=== PATIENT | female | born 1980 | race Caucasian/White ===

== ENCOUNTER 2019-09-25 16:51 | Emergency (ER) | payer MEDICAID, SELFPAY ==
[2019-09-25 17:08] VITALS: BP 122/67; PULSE 82; RESP 16; TEMP 37.3; O2SAT 99
--- NOTE | 2019-09-25 17:42 | ED.URI ---
HPI - URI/Sore Throat General Chief Complaint: Upper Respiratory Infection Stated Complaint: Fever/Sore Throat/Cough/Headache/Fatigue Time Seen by Provider: 09/25/19 17:43 Source: patient and RN notes reviewed Mode of arrival: ambulatory Limitations: no limitations and other (sore throat) History of Present Illness HPI Narrative: 39 year old female who presents to [facility] with complaints of fever, cough, headache, sneezing, and body aches since Sunday. Patient states that she has had fever up to 101.5F and has been taking Tylenol and Ibuprofen for the fevers and her discomfort. Patient states that her cough is nonproductive, denies any shortness of breath or any wheezing, respirations even and non labored with SAO2 99% on room air. MD elicited complaint: fever, cough and other (headache) Onset (ago): day(s) (2) Consistency: progressively worsening Severity: moderate Pain scale (0-10): 5 Description of mucous: clear Able to tolerate fluids by mouth: Yes Exacerbating factors: exertion Relieving factors: NSAID Associated symptoms: fever, chills, myalgias, headache and cough Treatments prior to arrival: acetaminophen and ibuprofen Related Data Home Medications Medication Instructions Recorded Confirmed lamotrigine 200 mg tablet 200 mg PO BID 09/10/19 sumatriptan succinate 100 mg tablet See Rx Instructions PO .COMPLEX 09/10/19 topiramate 25 mg tablet 25 mg PO .COMPLEX 09/10/19 Allergies Allergy/AdvReac Type Severity Reaction Status Date / Time ibuprofen Allergy Mild Verified 11/24/17 15:20 aspirin Allergy Unknown Verified 11/22/18 10:37 caffeine Allergy Unknown Verified 12/23/12 14:04 codeine Allergy Unknown Verified 11/22/18 10:37 NSAIDS (Non-Steroidal Allergy Unknown Verified 11/22/18 10:42 Anti-Inflamma Review of Systems Review of Systems: Narrative: CONSTITUTIONAL:Positive fever, chills, or sweats. EYES: Denies visual changes, redness, or discharge. ENT:clear rhinorrhea, congestion,no sore throat, or otalgia. CARDIOVASCULAR: Denies chest pain, palpitations, or edema. RESPIRATORY: Positive cough denies dyspnea. GASTROINTESTINAL: Denies abdominal pain, nausea, vomiting, or diarrhea. GENITOURINARY: Denies dysuria or hematuria. SKIN: Denies rash or itching. MUSCULOSKELETAL: Denies back pain, joint pain, or myalgia. NEUROLOGIC: positive headache, numbness, or weakness. PSYCHIATRIC: positive anxiety or depression. All systems reviewed & are unremarkable except as noted in HPI and below PMFSH Past Medical History Medical History (Updated 10/02/19 @ 16:25 by Lucy Beckham NP) Bipolar 1 disorder Chronic low back pain Migraines Solitary kidney Surgical History Surgical History (Updated 10/02/19 @ 16:26 by Lucy Beckham NP) H/O spinal fusion H/O: hysterectomy Hx of tonsillectomy Previous section Family History Family History Father Depression Family history of elevated blood lipids Mother Patient's mother is in good health Sibling Patient's sister is in good health Other Hypertension Social History Social History (Updated 10/02/19 @ 16:27 by Lucy Beckham NP) Smoking status: Never smoker Alcohol intake: current Living arrangements: with family Gender identity (if verbalized by the patient): Female Comments At time of signature, agree with nursing past medical, social history. There is no relevant family history pertinent to the presenting complaint Exam Narrative: Exam Narrative: GENERAL: Well-appearing, well-nourished, and in no acute distress. HEAD: Normocephalic, atraumatic. EYES: PERRLA and EOMI. ENT: Nares red, clear rhinorrhea or epistaxis. Mucous membranes moist.TM's normal with good light reflex, throat mild redness with no lesions or exudate, no tonsil enlargement NECK: Supple.no lymphadenopathy CHEST: Clear to auscultation. No respiratory distress.cough SAO2 99% on room air HEART:
== END 2019-09-25 17:48 | disposition home or self-care (01) ==
PROVIDERS: Emergency Provider Registered Nurse; PCP Internal Medicine
DX: J10.1 Influenza due to other identified influenza virus with other respiratory manifestations (principal); R05 Cough
CPT/HCPCS: 87804; 99213; G0463

== ENCOUNTER 2020-04-28 09:12 | Emergency (ER) | payer OTHER, SELFPAY ==
--- NOTE | ~2020-04-28 | CT_ITS ---
EXAMINATION: CT abdomen pelvis w con DATE: 04/28/2020 12:59 INDICATION: Left lower quadrant pain TECHNIQUE: Computed tomography (CT) of the abdomen and pelvis was performed with 100 cc Omnipaque 350 intravenous contrast. The dose-length product was 339.20 mGy-cm. Automated exposure control and iter ative reconstruction technique were employed. COMPARISON: CT dated 07/22/2010 FINDINGS: Lung bases are unremarkable. Heart size normal. No significant pleural or pericardial effus ion. The left kidney not identified. The liver, spleen, adrenal glands, pancreas are unremarkable. Th ere is 3.5 cm right renal cyst.. No significant vascular abnormality. No lymphadenopathy. There are c hanges of spinal fusion at L5-S1. No acute osseous abnormality. Nonobstructive bowel gas pattern. No evidence for diverticulitis. IMPRESSION: 1. No acute abdominal abnormality. Reviewed, dictated and finalized at location A.
--- NOTE | ~2020-04-28 | US_ITS ---
EXAMINATION: US pelvic complete w TV DATE: 04/28/2020 15:21 INDICATION: Left lower quadrant pain, hysterectomy TECHNIQUE: Multiple transabdominal and endovaginal sonographic images of the pelvis were obtained. COMPARISON: None. FINDINGS: The uterus is surgically absent. The right ovary measures 3.3 x 1.9 x 1.9 cm. The left ovar y measures 3.2 x 1.9 x 2.2 cm. There is normal vascular flow in the ovaries. There is no free fluid i n the pelvis. IMPRESSION: 1. No sonographic correlate for the patient's symptoms. Reviewed, dictated and finalized at location A.
[2020-04-28 09:29] VITALS: BP 131/67; PULSE 85; RESP 18; TEMP 36.7; O2SAT 100
[2020-04-28 09:51] LABS: Basophils Absolute Auto 0.1 K/mm3 (0.0-0.1); Basophils Percent Auto 0.7 % (0.2-1.2); Eosinophils Absolute Auto 0.2 K/mm3 (0-0.3); Eosinophils Percent Auto 2.2 % (0-4.4); Hematocrit 39.7 % (37.0-47.0); Hemoglobin 13.2 g/dL (12.0-15.0); Immature Granulocyte Absolute 0.03 K/mm3 (0.00-0.031); Immature Granulocyte Percent A 0.4 % (0-0.5); Lymphocytes Absolute Auto 2.22 K/mm3 (0.9-3.2); Lymphocytes Percent Auto 29.9 % (18.3-44.2); Mean Corpuscular HGB Conc 33.2 g/dl (32-36); Mean Corpuscular Hemoglobin 30.5 pg (26-34); Mean Corpuscular Volume 91.7 fl (80-100); Mean Platelet Volume 10.8 fl (7.4-10.4); Monocytes Absolute Auto 0.4 K/mm3 (0.1-0.6); Monocytes Percent Auto 4.7 % (2.6-8.5); Neutrophils Absolute Auto 4.6 K/mm3 (1.3-6.7); Neutrophils Percent Auto 62.1 % (45.5-73.1); Platelet Count Result 265 k/mm3 (150-375); Red Blood Count 4.33 M/mm3 (4.2-5.4); Red Cell Distribution Width 12.4 % (11.5-14.5); White Blood Count 7.4 K/mm3 (4.5-10.0)
[2020-04-28 10:03] LABS: Alanine Aminotransferase 24 U/L (4-35); Albumin Level 4.4 g/dL (3.5-5.1); Alkaline Phosphatase 65 U/L (38-126); Anion Gap 7 mmol/L (8-16); Aspartate Amino Transferase 20 U/L (14-36); Bilirubin,Total 0.3 mg/dL (0.2-1.3); Blood Urea Nitrogen 20 mg/dL (7-17); Calcium 9.6 mg/dL (8.4-10.2); Carbon Dioxide 24 mmol/L (22-30); Chloride 109 mmol/L (98-107); Estimated CRCL calculation 58 ml/min; Estimated Glomerular Filt Rate 55; Glucose 108 mg/dL (65-105); Lipase 290 U/L (23-300); Potassium 3.9 mmol/L (3.4-5.0); Sodium 140 mmol/L (137-145)
[2020-04-28 10:11] LABS: Add Urine Microscopic? NO; Appearance Urine Clear (Clear); Bilirubin Urine Negative (Negative); Blood Urine Negative (Negative); Color Urine Colorless (Yellow); Glucose Urine UA Negative (Negative); Ketones Urine Negative (Negative); Leukocyte Esterase Ur Negative LEU/UL (Negative); Nitrate Urine Negative (Negative); Protein Urine Negative (Negative); Urobilinogen Urine Negative mg/dL (<2.0)
--- NOTE | 2020-04-28 11:38 | PC.NURSE ---
Patient placed in gown. Socks provided to patient per her request. Patients respirations non-labored. No distress noted.
[2020-04-28] MEDS: SODIUM CHLORIDE 0.9% IV 1,000 ML 999 ML IV CONT (12:24)
[2020-04-28 13:40] VITALS: BP 93/48; PULSE 60; RESP 12; O2SAT 100
--- NOTE | 2020-04-28 13:44 | ED.ABDPAIN ---
HPI - Abdominal Pain General Chief Complaint: Abdominal Pain <SHARON Ulloa Last Filed: 04/28/20 13:51> Stated Complaint: abd pain <SHARON Ulloa Last Filed: 04/28/20 13:51> Time Seen by Provider: 04/28/20 11:38 <SHARON Ulloa Last Filed: 04/28/20 13:51> Source: patient <SHARON Ulloa Last Filed: 04/28/20 13:51> Mode of arrival: ambulatory <SHARON Ulloa Last Filed: 04/28/20 13:51> Limitations: no limitations <SHARON Ulloa Last Filed: 04/28/20 13:51> History of Present Illness HPI narrative: Patient is a 40-year-old female who presents with left lower abdominal pain for the last couple of days as a pressure and pain made better with pressing on the left lower abdomen patient denies vomiting fever chills URI symptoms or any urinary complaints notes history of ovarian cyst in the past. Patient has not been seen for this complaint on arrival is in no distress <SHARON Ulloa Last Filed: 04/28/20 13:51> Related Data Home Medications: Home Medications Medication Instructions Recorded Confirmed sumatriptan succinate 100 mg tablet See Rx Instructions PO .COMPLEX 09/10/19 03/12/20 <SHARON Ulloa Last Filed: 04/28/20 13:51> Allergies/Adverse Reactions: Allergies Allergy/AdvReac Type Severity Reaction Status Date / Time codeine Allergy Unknown Swelling Verified 04/28/20 09:37 ibuprofen AdvReac Mild Swelling Verified 04/28/20 09:37 aspirin AdvReac Unknown Swelling Verified 04/28/20 09:37 NSAIDS (Non-Steroidal AdvReac Unknown Swelling Verified 04/28/20 09:37 Anti-Inflamma <SHARON Ulloa Last Filed: 04/28/20 13:51> Review of Systems Review of Systems: All systems reviewed & are unremarkable except as noted in HPI and below <SHARON Ulloa Last Filed: 04/28/20 13:51> PMFSH Past Medical History Medical History: Medical History Bipolar 1 disorder Chronic low back pain Elevated lipids Migraines Solitary kidney <Samuel Cowan PA-C - Last Filed: 04/28/20 13:51> Surgical History Surgical History: Surgical History H/O spinal fusion H/O: hysterectomy Hx of tonsillectomy Previous section <Samuel Cowan PA-C - Last Filed: 04/28/20 13:51> Social History Social History: Social History Smoking status: Never smoker Alcohol intake: current Gender identity (if verbalized by the patient): Female <Samuel Cowan PA-C - Last Filed: 04/28/20 13:51> Exam Narrative: Exam Narrative: GENERAL: Well-appearing, well-nourished, and in no acute distress. HEAD: Normocephalic, atraumatic. EYES: PERRLA and EOMI. ENT: Nares clear, no rhinorrhea or epistaxis. Mucous membranes moist. CHEST: Clear to auscultation. No respiratory distress. No wheezes rales or rhonchi HEART: Regular rate and rhythm. No murmur heard. Normal peripheral pulses. ABDOMEN: Soft, left lower abdominal tenderness to palpation, nondistended. No rebound or guarding EXTREMITIES: Normal range of motion. No edema. SKIN: Warm, dry, no rash. NEURO: No focal deficits. Alert and oriented x3. PSYCH: Normal mood and affect. <Samuel Cowan PA-C - Last Filed: 04/28/20 13:51> Course Course Emergency Course: Patient was given medications in the emergency department no high risk changes in the blood work or imaging advised to follow with primary care and gynecology for further evaluation and is felt appropriate for outpatient reevaluation provided with reasons to return. <Samuel Cowan PA-C - Last Filed: 04/28/20 13:51> Vital Signs Vital signs: Vital Signs Temperature 36.7 C 04/28/20 09:29 Pulse Rate 85 04/28/20 09:29 Respiratory Rate 18 04/28/20 09:29 Blood Pressure
--- NOTE | 2020-04-28 15:06 | PC.NURSE ---
Patient to ultrasound via wheelchair.
[2020-04-28 15:49] VITALS: BP 104/58; PULSE 69; RESP 12; O2SAT 99
== END 2020-04-28 15:50 | disposition home or self-care (01) ==
PROVIDERS: Emergency Provider Emergency Medicine; PCP Internal Medicine
DX: R10.32 Left lower quadrant pain (principal); F31.9 Bipolar disorder, unspecified
CPT/HCPCS: 36415; 74177; 76830; 76856; 80053; 81003; 83690; 85025; 96361; 96365; 99284; J0131; J7030; Q9967

== ENCOUNTER 2020-04-29 16:09 | Outpatient (CLI) | payer OTHER, SELFPAY ==
--- NOTE | ~2020-04-29 | US_ITS ---
EXAMINATION: US abdomen complete DATE: 04/29/2020 17:36 INDICATION: Abdominal distention TECHNIQUE: Multiple grayscale and Doppler ultrasound images of the abdomen were obtained. COMPARISON: CT and ultrasound examinations from yesterday FINDINGS: The head, body, and tail of the pancreas are normal. The liver is normal with normal echoge nicity and echotexture. No surface nodularity. Normal hepatopetal flow in the main portal vein. The g allbladder is normal with no abnormal wall thickening, pericholecystic fluid or stones. The normal co mmon bile duct measures 4 mm. There was no sonographic Del Toro sign. The visualized portions of the ao rta and inferior vena cava are normal. The right kidney measures 12.5 x 6.1 x 6.2 cm and contains a 3.2 cm cyst. The left kidney is congenit ally absent. The right kidney demonstrates normal parenchymal echogenicity. A hypoechoic area of the left lower quadrant measured by the core dropper is without suspicious correlate on CT performed yeste rday and likely reflects a loop of bowel. There is no hydronephrosis. The spleen is normal in appeara nce and measures 11.1 cm. IMPRESSION: 1. No sonographic correlate for the patient's symptoms. Reviewed, dictated and finalized at location A.
== END 2020-04-29 16:10 | disposition home or self-care (01) ==
PROVIDERS: PCP Internal Medicine; Visit Provider Internal Medicine
DX: R14.0 Abdominal distension (gaseous) (principal)
CPT/HCPCS: 76700

== ENCOUNTER 2020-05-15 11:02 | Outpatient (CLI) | payer OTHER, SELFPAY ==
[2020-05-15 18:59] LABS: SARS-CoV-2 RNA PCR Negative
== END 2020-05-15 11:03 ==
LOC: ANHCOVIDDT 07-28 11:02
PROVIDERS: PCP Internal Medicine; Visit Provider Internal Medicine Gastroenterology
DX: Z01.812 Encounter for preprocedural laboratory examination (principal); Z20.828 Contact with and (suspected) exposure to other viral communicable diseases
CPT/HCPCS: 87635; C9803; U0003

== ENCOUNTER 2020-05-18 01:53 | Day surgery (SDC) | payer OTHER, SELFPAY ==
[2020-05-12 11:45] VITALS: BMI 26.8
[2020-05-18] MEDS: LACTATED RINGERS 1,000 ML 150 ML IV CONT (06:40)
[2020-05-18 06:42] VITALS: BMI 26.9
[2020-05-18 06:44] VITALS: BP 105/62; PULSE 66; RESP 18; TEMP 36.3; O2SAT 100
--- NOTE | 2020-05-18 07:04 | WPDANESEPPF ---
Anes - Initial Pre Proc Eval Procedure: Operation Date: 05/18/20 07:30 Proposed Procedures p Colonoscopy - Vel Blackburn MD Date/Time: 05/18/20 07:04 Surgeon: Vel Blackburn MD Pre Op Diagnosis: LLQ pain Patient Data Age: 40 Gender: F Height: 5 ft 4 in Weight: 71 kg Last Vital Signs Temp 97.4 F L 05/18/20 06:44 Pulse 66 05/18/20 06:44 Resp 18 05/18/20 06:44 BP 105/62 05/18/20 06:44 Pulse Ox 100 05/18/20 06:44 Allergies Allergy/AdvReac Type Severity Reaction Status Date / Time codeine Allergy Unknown Swelling Verified 05/18/20 06:23 ibuprofen AdvReac Mild Swelling Verified 05/18/20 06:23 aspirin AdvReac Unknown Swelling Verified 05/18/20 06:23 NSAIDS (Non-Steroidal AdvReac Unknown Swelling Verified 05/18/20 06:23 Anti-Inflamma Home Medications Medication Instructions Recorded Confirmed Type sumatriptan succinate 100 mg tablet See Rx Instructions PO .COMPLEX 09/10/19 05/18/20 History topiramate 25 mg tablet 25 mg PO .COMPLEX #270 tablet 01/16/20 05/18/20 Rx lamotrigine 200 mg tablet 200 mg PO BID #180 tablet 02/13/20 05/18/20 Rx temazepam 30 mg capsule 30 mg PO ONCE #30 cap 02/27/20 05/18/20 Rx tramadol 50 mg tablet 100 mg PO Q8H PRN #180 tablet 05/11/20 05/18/20 Rx methocarbamol [Robaxin-750] 750 mg PO TID PRN 05/12/20 05/18/20 History Patient hx anesthesia problems: none Family hx anesthesia problems: none PMFSH Past Medical History Medical History (Updated 05/10/20 @ 11:24 by Vel Blackburn MD) Bipolar 1 disorder Chronic low back pain Elevated lipids LLQ pain Migraines Solitary kidney Surgical History Surgical History H/O spinal fusion H/O: hysterectomy Hx of tonsillectomy Previous section Family History Family History Father Depression Family history of elevated blood lipids Mother Patient's mother is in good health Sibling Patient's sister is in good health Other Hypertension Social History Social History Smoking status: Never smoker Alcohol intake: current Drinks per week: 0 Alcohol use details: MAY HAVE 1 OR 2 PER MONTH Substance use: never Substance use type: does not use Living arrangements: with family Gender identity (if verbalized by the patient): Female Spiritual care concerns: No Anes - Eval Final PreProcedure Day of Procedure 05/18/20 07:04 Patient weight: normal Heart: regular rate and rhythm Lungs: clear to auscultation Airway: Mallampati scale class II Neurological: alert and oriented Last oral intake: >/= 8 hours ASA classification: II Emergent: no Anesthetic plan: proceed Anesthesia type and monitoring: general GIVS and standard monitoring Informed Consent: The patient's anesthetic plan and its attendant risks and benefits were discussed with the patient/family/POA. Questions were solicited and answers provided to the satisfaction of the patient/family/POA.
--- NOTE | 2020-05-18 07:32 | WPDHPUPDATE1 ---
History and Physical Update Update Date/Time: 05/18/20 07:32 History and Physical has been reviewed, including an updated exam of the patient. There are NO changes in the patient's condition. Risks, benefits, and alternatives have been discussed and questions answered. Patient agrees to proceed with procedure.
[2020-05-18 07:55] VITALS: BP 100/59; PULSE 68; RESP 18; O2SAT 100
[2020-05-18 08:05] VITALS: BP 98/55; PULSE 62; RESP 14; O2SAT 100
[2020-05-18 08:15] VITALS: BP 106/72; PULSE 60; RESP 14; O2SAT 100
[2020-05-18 08:25] VITALS: BP 102/65; PULSE 64; RESP 14; O2SAT 100
[2020-05-18] MEDS: ACETAMINOPHEN 325 MG TABLET 650 MG PO (08:26)
== END 2020-05-18 08:48 | disposition home or self-care (01) ==
PROVIDERS: PCP Internal Medicine; Visit Provider Internal Medicine Gastroenterology
PROC: 0DJD8ZZ Inspection of Lower Intestinal Tract, Via Natural or Artificial Opening Endoscopic (ICD-10-PCS; CPT 45378; principal; 2020-05-18 07:30)
DX: R10.32 Left lower quadrant pain (principal); F31.9 Bipolar disorder, unspecified; Q60.0 Renal agenesis, unilateral; Z98.1 Arthrodesis status
CPT/HCPCS: 45378; A9270; J2704; J7120

== ENCOUNTER 2020-09-01 14:04 | Outpatient (CLI) | payer OTHER, SELFPAY ==
[2020-09-01 14:56] LABS: Basophils Percent Auto 0.5 % (0.2-1.2); Eosinophils Absolute Auto 0.1 K/mm3 (0-0.3); Eosinophils Percent Auto 1.9 % (0-4.4); Hemoglobin 13.1 g/dL (12.0-15.0); Immature Granulocyte Absolute 0.01 K/mm3 (0.00-0.031); Immature Granulocyte Percent A 0.2 % (0-0.5); Lymphocytes Absolute Auto 1.67 K/mm3 (0.9-3.2); Mean Corpuscular HGB Conc 33.6 g/dl (32-36); Mean Corpuscular Hemoglobin 30.6 pg (26-34); Mean Corpuscular Volume 91.1 fl (80-100); Mean Platelet Volume 10.5 fl (7.4-10.4); Monocytes Absolute Auto 0.3 K/mm3 (0.1-0.6); Monocytes Percent Auto 4.5 % (2.6-8.5); Neutrophils Absolute Auto 3.7 K/mm3 (1.3-6.7); Neutrophils Percent Auto 63.9 % (45.5-73.1); Platelet Count Result 249 k/mm3 (150-375); Red Blood Count 4.28 M/mm3 (4.2-5.4); Red Cell Distribution Width 12.7 % (11.5-14.5); White Blood Count 5.8 K/mm3 (4.5-10.0)
[2020-09-01 15:09] LABS: Rheumatoid Factor < 8.6 IU/ML (<12)
[2020-09-01 15:10] LABS: CRP < 0.5 mg/dL (<1.0); Uric Acid 3.3 mg/dL (2.5-7.5)
[2020-09-01 15:35] LABS: Erythrocyte Sedimentation Rate 19 mm/hr (0-20)
== END 2020-09-01 14:05 | disposition home or self-care (01) ==
LOC: ANHLAB 14:06
PROVIDERS: Family Provider Internal Medicine; PCP Internal Medicine; Visit Provider Orthopaedic Surgery
DX: M17.0 Bilateral primary osteoarthritis of knee (principal)
CPT/HCPCS: 36415; 84550; 85025; 85652; 86038; 86140; 86430

== ENCOUNTER 2020-10-02 09:43 | Outpatient (CLI) | payer OTHER, SELFPAY ==
--- NOTE | ~2020-10-02 | MR_ITS ---
EXAMINATION: MR knee LT wo con DATE: 10/02/2020 10:28 INDICATION: Left knee pain. TECHNIQUE: Magnetic resonance imaging (MRI) of the left knee was performed without intravenous contra st. Sequences included axial PD-weighted FS FSE, coronal PD-weighted FSE and PD-weighted FS FSE, sagi ttal PD-weighted FSE, and sagittal T2-weighted FS FSE. COMPARISON: Left knee radiographs 09/01/2020 FINDINGS: Medial compartment: Medial meniscus is normal. There is cartilage surface regularity of tibial condyle. There is deep car tilage fissuring of femoral condyle involving the central articular surface. Lateral compartment: Lateral meniscus is normal. There is cartilage surface irregularity of tibial condyle and femoral con dyle. Patellofemoral compartment: There is shallow partial-thickness cartilage loss involving patellar medial and lateral facets and me rush ridge. There is shallow partial-thickness cartilage loss of lateral trochlea. Ligaments and tendons: The anterior and posterior cruciate ligaments are normal. Medial collateral ligament is normal. There are changes of prior sprain of fibular collateral ligament characterized thickening and increased si gnal intensity. There is mild patellar tendinopathy. Fluid: There is a small knee joint effusion. There is mild prepatellar bursitis. IMPRESSION: 1. Mild tricompartmental chondrosis. 2. Small knee joint effusion. Reviewed, dictated and finalized at location A. [employer] DATA
== END 2020-10-02 09:44 | disposition home or self-care (01) ==
PROVIDERS: PCP Internal Medicine; Visit Provider Orthopaedic Surgery
DX: M25.462 Effusion, left knee (principal)
CPT/HCPCS: 73721

== ENCOUNTER 2021-04-05 09:25 | Outpatient (CLI) | payer OTHER, SELFPAY ==
[2021-04-05 10:19] LABS: Alanine Aminotransferase 17 U/L (4-35); Albumin Level 4.1 g/dL (3.5-5.1); Alkaline Phosphatase 49 U/L (38-126); Anion Gap 6 mmol/L (8-16); Aspartate Amino Transferase 21 U/L (14-36); Bilirubin,Total 0.4 mg/dL (0.2-1.3); Blood Urea Nitrogen 14 mg/dL (7-17); Carbon Dioxide 25 mmol/L (22-30); Chloride 109 mmol/L (98-107); Cholesterol 159 mg/dL (0-200); Estimated Glomerular Filt Rate > 60; Glucose 93 mg/dL (65-110); HDL Direct 68 mg/dL; Potassium 3.7 mmol/L (3.4-5.0); Sodium 140 mmol/L (137-145); Triglycerides 89 mg/dL (<150)
[2021-04-05 10:31] LABS: LDL Cholesterol Direct 62 mg/dL
[2021-04-05 11:22] LABS: Vitamin D 25 Hydroxy 47.8 ng/mL
== END 2021-04-05 09:26 | disposition home or self-care (01) ==
LOC: ANHLAB 09:28
PROVIDERS: PCP Internal Medicine; Visit Provider Nurse Practitioner
DX: Z13.21 Encounter for screening for nutritional disorder (principal); G47.09 Other insomnia; E78.5 Hyperlipidemia, unspecified; Z13.6 Encounter for screening for cardiovascular disorders
CPT/HCPCS: 36415; 80053; 80061; 82306; 84443

== ENCOUNTER 2021-06-06 00:47 | Day surgery (SDC) | payer OTHER, SELFPAY ==
[2021-05-23 11:37] VITALS: BMI 25.3
[2021-06-06 11:44] VITALS: BP 104/53; PULSE 71; RESP 16; TEMP 37.3; O2SAT 100
[2021-06-06] MEDS: LACTATED RINGERS 1,000 ML 150 ML IV CONT (11:47)
--- NOTE | 2021-06-06 11:54 | WPDANESEPPF ---
Anes - Initial Pre Proc Eval Procedure: Operation Date: 06/06/21 13:00 Proposed Procedures p Esophagogastroduodenoscopy - Vel Blcakburn MD Date/Time: 06/06/21 11:54 Surgeon: Vel Blackburn MD Pre Op Diagnosis: epigastric pain Patient Data Age: 41 Gender: F Height: 1.64 m Weight: 69.2 kg Last Vital Signs Temp 37.3 C 06/06/21 11:44 Pulse 71 06/06/21 11:44 Resp 16 06/06/21 11:44 BP 104/53 L 06/06/21 11:44 Pulse Ox 100 06/06/21 11:44 Allergies Allergy/AdvReac Type Severity Reaction Status Date / Time codeine Allergy Unknown Swelling Verified 06/06/21 11:43 ibuprofen AdvReac Mild Swelling Verified 06/06/21 11:43 aspirin AdvReac Unknown Swelling Verified 06/06/21 11:43 NSAIDS (Non-Steroidal AdvReac Unknown Swelling Verified 06/06/21 11:43 Anti-Inflamma Home Medications Medication Instructions Recorded Confirmed Type lamotrigine 200 mg tablet See Rx Instructions .ROUTE 01/10/21 06/06/21 Rx .COMPLEX #180 tablet methocarbamol 750 mg tablet 750 mg PO TID PRN #30 tablet 03/23/21 06/06/21 Rx tramadol 50 mg tablet 100 mg PO Q8H PRN #180 tablet 04/22/21 06/06/21 Rx bupropion HCl 300 mg 24 hr tablet, 300 mg PO QAM #30 tablet 05/10/21 06/06/21 Rx extended release flurazepam 30 mg capsule 30 mg PO QHS PRN #30 cap 05/12/21 06/06/21 Rx Patient hx anesthesia problems: post op nausea/vomiting and other (slow to awaken) Family hx anesthesia problems: none Results Review: All pre-operative results and documents have been reviewed as part of the pre-operative evaluation. [facility] Past Medical History Medical History Bipolar 1 disorder Chronic low back pain Elevated lipids LLQ pain Migraines Solitary kidney Surgical History Surgical History H/O spinal fusion H/O: hysterectomy Hx of tonsillectomy Previous section Family History Family History Father Depression Family history of elevated blood lipids Mother Patient's mother is in good health Sibling Patient's sister is in good health Grandparent Schizophrenia Glaucoma Other Hypertension Social History Social History Smoking status: Never smoker Second hand tobacco smoke exposure: No Alcohol intake: current Drinks per week: 3 Alcohol use details: Social Substance use: never Substance use type: does not use Living arrangements: with family 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 Informed Consent: The patient's anesthetic plan and its attendant risks and benefits were discussed with the patient/family/POA. Questions were solicited and answers provided to the satisfaction of the patient/family/POA.
--- NOTE | 2021-06-06 12:21 | PM.HPGS ---
History of Present Illness History of Present Illness Consent: Risks, benefits, and alternatives have been discussed and questions answered. Patient agrees to proceed with procedure. Chief complaint: epigastric pain Narrative: Caitlyn Ward is a 41 year old female with intermittent ruq pain, took omeprazole without any difference. Review of Systems Constitutional: Constitutional: Denies headache(s) and Denies weakness Eyes: Eyes: Denies blurry vision ENT: Reports Normal hearing present, Denies headache(s) and Denies neck pain Cardiovascular: Cardiovascular: Denies chest pain and Denies dyspnea Respiratory: Respiratory: Denies dyspnea Gastrointestinal: Gastrointestinal: Reports no additional gastrointestinal complaints Genitourinary: Genitourinary: Denies dysuria Musculoskeletal: Musculoskeletal: Denies neck pain Integumentary/Breasts: Skin/Breast: Denies dry skin Neurologic: Reports Normal hearing present, Denies headache(s) and Denies weakness Psychiatric: Psychiatric: Denies anxiety Endocrine: Endocrine: Denies change in body appearance Hematologic/Lymphatic: Hematologic/Lymphatic: Denies easy bleeding Allergic/Immunologic: Allergic/Immunologic: Denies urticaria PMFSH Past Medical History Medical History Bipolar 1 disorder Chronic low back pain Elevated lipids LLQ pain Migraines Solitary kidney Surgical History Surgical History H/O spinal fusion H/O: hysterectomy Hx of tonsillectomy Previous section Family History Family History Father Depression Family history of elevated blood lipids Mother Patient's mother is in good health Sibling Patient's sister is in good health Grandparent Schizophrenia Glaucoma Other Hypertension Social History Social History Smoking status: Never smoker Second hand tobacco smoke exposure: No Alcohol intake: current Drinks per week: 3 Alcohol use details: Social Substance use: never Substance use type: does not use Living arrangements: with family 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 Gender identity (if verbalized by the patient): Female Spiritual care concerns: No Meds Home Medications and Allergies Home Medications Medication Instructions Recorded Confirmed Type lamotrigine 200 mg tablet See Rx Instructions .ROUTE 01/10/21 06/06/21 Rx .COMPLEX #180 tablet methocarbamol 750 mg tablet 750 mg PO TID PRN #30 tablet 03/23/21 06/06/21 Rx tramadol 50 mg tablet 100 mg PO Q8H PRN #180 tablet 04/22/21 06/06/21 Rx bupropion HCl 300 mg 24 hr tablet, 300 mg PO QAM #30 tablet 05/10/21 06/06/21 Rx extended release flurazepam 30 mg capsule 30 mg PO QHS PRN #30 cap 05/12/21 06/06/21 Rx Allergies Allergy/AdvReac Type Severity Reaction Status Date / Time codeine Allergy Unknown Swelling Verified 06/06/21 11:43 ibuprofen AdvReac Mild Swelling Verified 06/06/21 11:43 aspirin AdvReac Unknown Swelling Verified 06/06/21 11:43 NSAIDS (Non-Steroidal AdvReac Unknown Swelling Verified 06/06/21 11:43 Anti-Inflamma Vital Signs Vital Signs - 24 hr 06/06/21 11:44 Temperature 99.2 F Pulse Rate 71 Respiratory Rate 16 Blood Pressure 104/53 L Pulse Oximetry 100 Exam Const: General: comfortable and no acute distress HENMT: General nose exam: Normal nares present Eyes: General: appearance normal, both eyes and all related structures Neck: Neck: no JVD Resp: Auscultation: clear to auscultation bilaterally Cardio: Rate: regular rate Rhythm: regular rhythm GI: Inspection: non-distended GI Palp: Yes Soft to palpation Skin: General skin exam: normal color Neuro: General: gait normal Speech: normal speech Extrem: General: normal to inspecti
[2021-06-06] MEDS: BENZOCAINE (*SP) 60 ML SPRAY CAN (HURRICAINE) 1 SPRAY MUCOUS MEM (12:25)
[2021-06-06 12:34] VITALS: BP 104/52; PULSE 78; RESP 14; O2SAT 99
[2021-06-06 12:44] VITALS: BP 95/58; PULSE 61; RESP 15; O2SAT 100
[2021-06-06 12:54] VITALS: BP 99/64; PULSE 67; RESP 21; O2SAT 100
== END 2021-06-06 13:02 | disposition home or self-care (01) ==
PROVIDERS: PCP Internal Medicine; Visit Provider Internal Medicine Gastroenterology
PROC: 0DJ08ZZ Inspection of Upper Intestinal Tract, Via Natural or Artificial Opening Endoscopic (ICD-10-PCS; CPT 43235; principal; 2021-06-06 13:00)
DX: R10.11 Right upper quadrant pain (principal); F31.9 Bipolar disorder, unspecified; Z98.1 Arthrodesis status
CPT/HCPCS: 43239; 88305; J2704; J7120

== ENCOUNTER 2021-06-22 10:32 | Outpatient (CLI) | payer OTHER, SELFPAY ==
--- NOTE | ~2021-06-22 | US_ITS ---
EXAMINATION: US abdomen complete EXAM DATE: 06/22/2021 11:07 INDICATION: R10.9 - Unspecified abdominal pain. TECHNIQUE: Multiple grayscale and Doppler images of the complete abdomen were obtained (by a technolo gist who performed the scan) and subsequently reviewed. Comparison is made to prior examination from 04/29/2020. FINDINGS: The abdominal aorta is normal in caliber. Visualized portion IVC is patent. The pancreatic head a nd body are normal in appearance. The pancreatic tail is not visualized. The liver has normal echogenicity and contour. There are no focal liver lesions identified. There is no evidence of intrahepatic biliary duct dilation. Portal venous flow was seen in the hepatopedal , normal direction and has normal Doppler waveform. Common bile duct measures 4 mm, which is normal. The gallbladder wall is normal in thickness, with ex pected amount of distention. No sonographic evidence of pericholecystic fluid. There is no cholelit hiases. Technologist performing exam reports patient did not demonstrate sonographic Del Toro's sign. Please note that this sign is less reliable in patients who have received pain medication. Right kidney: There is normal contour and echogenicity. It measures 11.7 x 5.8 x 6.3 centimeters. T here is a cyst measuring 3.4 cm. There is no hydronephrosis. Left kidney: Not identified. The spleen measures 8.5 centimeters and is morphologically normal. IMPRESSION: Absent left kidney. No acute findings. Reviewed, dictated and finalized at location B. [employer]INTER
== END 2021-06-22 10:33 | disposition home or self-care (01) ==
LOC: ANHIMG 10:36
PROVIDERS: PCP Internal Medicine; Visit Provider Nurse Practitioner
DX: R10.9 Unspecified abdominal pain (principal); R19.5 Other fecal abnormalities; Z90.5 Acquired absence of kidney
CPT/HCPCS: 76700

== ENCOUNTER 2022-06-27 10:49 | Outpatient (CLI) | payer OTHER, SELFPAY ==
[2022-06-27 11:19] LABS: Alanine Aminotransferase 25 U/L (6-35); Alkaline Phosphatase 44 U/L (38-126); Anion Gap 8 mmol/L (8-16); Aspartate Amino Transferase 28 U/L (14-36); Bilirubin,Total 0.2 mg/dL (0.2-1.3); Blood Urea Nitrogen 14 mg/dL (7-17); Calcium 8.9 mg/dL (8.4-10.2); Carbon Dioxide 25 mmol/L (22-30); Chloride 106 mmol/L (98-107); Cholesterol 204 mg/dL (0-200); Estimated Glomerular Filt Rate > 60; Glucose 96 mg/dL (65-110); HDL Direct 54 mg/dL; Potassium 4.1 mmol/L (3.4-5.0); Sodium 139 mmol/L (137-145); Triglycerides 201 mg/dL (<150)
[2022-06-27 11:31] LABS: LDL Cholesterol Direct 84 mg/dL
[2022-06-27 11:58] LABS: Vitamin D 25 Hydroxy 25.7 ng/mL
== END 2022-06-27 10:50 | disposition home or self-care (01) ==
LOC: ANHLAB 10:51
PROVIDERS: PCP Internal Medicine; Visit Provider Internal Medicine
DX: Z13.6 Encounter for screening for cardiovascular disorders (principal); E78.5 Hyperlipidemia, unspecified; G47.09 Other insomnia; Z13.21 Encounter for screening for nutritional disorder
CPT/HCPCS: 36415; 80053; 80061; 82306; 84443

== ENCOUNTER 2022-09-25 08:39 | Outpatient (CLI) | payer OTHER, SELFPAY ==
[2022-09-27 10:03] LABS: PCP NEGATIVE ng/mL (<25)
[2022-09-29 08:19] LABS: Amphetamines Negative; Barbiturates Negative; Benzodiazepines Negative; Cocaine Metabolites Negative; Marijuana Metabolites Negative
== END 2022-09-25 08:40 | disposition home or self-care (01) ==
PROVIDERS: PCP Internal Medicine; Visit Provider Internal Medicine
DX: Z51.81 Encounter for therapeutic drug level monitoring (principal); Z79.899 Other long term (current) drug therapy
CPT/HCPCS: 80307

== ENCOUNTER 2023-03-20 09:56 | Outpatient (CLI) | payer OTHER, SELFPAY ==
[2023-03-20 10:36] LABS: Basophils Absolute Auto 0.1 K/mm3 (0.0-0.1); Basophils Percent Auto 0.9 % (0.2-1.2); Eosinophils Absolute Auto 0.1 K/mm3 (0-0.3); Eosinophils Percent Auto 2.1 % (0-4.4); Hematocrit 42.1 % (37.0-47.0); Hemoglobin 13.6 g/dL (12.0-15.0); Immature Granulocyte Absolute 0.03 K/mm3 (0.00-0.031); Immature Granulocyte Percent A 0.4 % (0-0.5); Immature Reticulocyte Fraction 5.4 % (3.0-15.9); Lymphocytes Absolute Auto 2.46 K/mm3 (0.9-3.2); Lymphocytes Percent Auto 36.1 % (18.3-44.2); Mean Corpuscular HGB Conc 32.3 g/dl (32-36); Mean Corpuscular Hemoglobin 30.1 pg (26-34); Mean Corpuscular Volume 93.1 fl (80-100); Mean Platelet Volume 10.7 fl (7.4-10.4); Monocytes Absolute Auto 0.4 K/mm3 (0.1-0.6); Monocytes Percent Auto 5.7 % (2.6-8.5); Neutrophils Absolute Auto 3.7 K/mm3 (1.3-6.7); Neutrophils Percent Auto 54.8 % (45.5-73.1); Platelet Count Result 320 k/mm3 (150-375); Red Blood Count 4.52 M/mm3 (4.2-5.4); Red Cell Distribution Width 12.8 % (11.5-14.5); Reticulocyte Hemoglobin Conten 33.6 pg (28.2-35.7); Reticulocyte Percent 2.03 % (0.7-4.3); Reticulocytes Absolute 0.09 M/mm3 (0.02-0.1); White Blood Count 6.8 K/mm3 (4.5-10.0)
[2023-03-20 10:47] LABS: Alanine Aminotransferase 16 U/L (6-35); Albumin Level 4.7 g/dL (3.5-5.1); Alkaline Phosphatase 61 U/L (38-126); Anion Gap 8 mmol/L (8-16); Aspartate Amino Transferase 21 U/L (14-36); Bilirubin,Total 0.2 mg/dL (0.2-1.3); Blood Urea Nitrogen 20 mg/dL (7-17); Calcium 9.8 mg/dL (8.4-10.2); Carbon Dioxide 25 mmol/L (22-30); Chloride 105 mmol/L (98-107); Cholesterol 238 mg/dL (0-200); Estimated Glomerular Filt Rate > 60; Glucose 102 mg/dL (65-110); HDL Direct 86 mg/dL; Potassium 4.5 mmol/L (3.4-5.0); Sodium 138 mmol/L (137-145); Triglycerides 156 mg/dL (<150)
[2023-03-20 10:57] LABS: Iron 91 ug/dL (37-170)
[2023-03-20 10:58] LABS: LDL Cholesterol Direct 111 mg/dL
[2023-03-20 11:06] LABS: Percent Iron Saturation 24 % (20-50)
[2023-03-20 11:20] LABS: Free T4 Free Thyroxine 1.07 ng/mL (0.78-2.19)
[2023-03-20 13:21] LABS: Vitamin D 25 Hydroxy 39.5 ng/mL
[2023-03-24 06:09] LABS: Red Blood Cell Folate 430 ng/mL RBC (>280)
== END 2023-03-20 09:57 | disposition home or self-care (01) ==
LOC: ANHLAB 09:57
PROVIDERS: PCP Family Medicine; Visit Provider Nurse Practitioner Family
DX: E78.5 Hyperlipidemia, unspecified (principal); G47.00 Insomnia, unspecified; G89.29 Other chronic pain; M51.36 Other intervertebral disc degeneration, lumbar region; Z13.21 Encounter for screening for nutritional disorder; E55.9 Vitamin D deficiency, unspecified; D64.9 Anemia, unspecified; R53.83 Other fatigue; M54.50 Low back pain, unspecified
CPT/HCPCS: 36415; 80053; 80061; 82306; 82607; 82728; 82747; 83540; 83550; 84439; 84443; 85025; 85046

== ENCOUNTER 2023-06-15 09:45 | Emergency (ER) | payer OTHER, SELFPAY ==
--- NOTE | 2023-06-15 09:46 | ED.URI ---
HPI - URI/Sore Throat General Chief Complaint: Upper Respiratory Infection Stated Complaint: Sore Throat Time Seen by Provider: 06/15/23 09:45 Source: patient Mode of arrival: ambulatory Limitations: no limitations History of Present Illness HPI Narrative: Caitlyn is a 43-year-old female patient presenting to the clinic today with complaints feeling feverish, cough, body aches, chills, sore throat, and ear pain times 3 days. No known exposure to anyone with COVID, flu, or strep. Reports she has felt feverish but has not been able check her temperature. She denies any shortness of breath or chest pain. MD elicited complaint: sore throat and nasal congestion Related Data Home Medications Medication Instructions Recorded Confirmed estradiol 0.1 mg/24 hr semiweekly 1 patch transdermal 2XW 02/20/23 06/15/23 transdermal patch Allergies Allergy/AdvReac Type Severity Reaction Status Date / Time ibuprofen AdvReac Mild Swelling Verified 06/15/23 09:46 aspirin AdvReac Unknown Swelling Verified 06/15/23 09:46 NSAIDS (Non-Steroidal AdvReac Unknown Swelling Verified 06/15/23 09:46 Anti-Inflamma Review of Systems Review of Systems: Pertinent positives per HPI. Patient denies any rash, headache, visual changes, dizziness,shortness of breath, chest pain, palpitations, nausea, vomiting, diarrhea, constipation, abdominal pain, or any urinary issues. [facility] Past Medical History Medical History Bipolar 1 disorder Chronic low back pain COVID-19 Elevated lipids LLQ pain Migraines Solitary kidney Surgical History Surgical History H/O spinal fusion (02/03/15) spinal fusion L5 S1 H/O: hysterectomy (02/24/10) Laparoscopic Supra cervical hysterectomy; Menometrorrhagia, failed Ablation Bicornuate uterus History of gynecological procedure (08/19/09) Rollerball endometrial ablation ; menometrorrhagia, uterine septum History of gynecological procedure (08/20/07) DX laparoscopy RLQ pain dyspareunia Hx of tonsillectomy (~1984) Previous section primary c/s Breech 08/31/2004 rpt c/s 09/21/2005 Family History Family History Father Depression Family history of elevated blood lipids Heart disease Hypertension Mother Patient's mother is in good health Sibling Patient's sister is in good health Grandparent Schizophrenia Glaucoma Breast cancer paternal grandmother Hypertension maternal grandmother Social History Social History Smoking status: Never smoker Second hand tobacco smoke exposure: No Alcohol intake: current Drinks per week: 3 Alcohol use details: Social Substance use: never Substance use type: does not use Lack of Transportation: No Lack of Food: Never True Current Housing: I Have Housing Concerned About Future Housing: No Difficulty Paying Gas/Electric Bills: No Difficulty Paying for Meds: No Currently Unemployed: No Education: High School Diploma/GED Difficulty w/ Childcare or Family Care: No Living arrangements: with family Occupation/Education: occupation 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 There is no relevant family history pertinent to the patient complaint. Exam Narrative: General: Well-developed, well nourished, in no apparent distress Head: Normocephalic, atraumatic Eyes: Pupils equally round and reactive to light bilaterally, EOM intact, sclera and conjunctive clear, no discharge, lids normal Ears: TMs intact and congested, ear canals clear, no drainage, gr
[2023-06-15 10:00] VITALS: BP 105/61; PULSE 80; RESP 14; TEMP 36.9; O2SAT 97
== END 2023-06-15 10:15 | disposition home or self-care (01) ==
PROVIDERS: Emergency Provider Nurse Practitioner Family; PCP Family Medicine
DX: U07.1 COVID-19 (principal); Q60.0 Renal agenesis, unilateral
CPT/HCPCS: 87081; 87426; 87804; 87880; 99213; C9803; G0463

== ENCOUNTER 2024-01-31 13:04 | Outpatient (CLI) | payer OTHER, SELFPAY ==
[2024-01-31 13:26] LABS: Basophils Absolute Auto 0.1 K/mm3 (0.0-0.1); Eosinophils Absolute Auto 0.1 K/mm3 (0-0.3); Eosinophils Percent Auto 2.3 % (0-4.4); Hemoglobin 12.9 g/dL (12.0-15.0); Immature Granulocyte Absolute 0.02 K/mm3 (0.00-0.031); Immature Granulocyte Percent A 0.3 % (0-0.5); Lymphocytes Absolute Auto 2.52 K/mm3 (0.9-3.2); Lymphocytes Percent Auto 43.8 % (18.3-44.2); Mean Corpuscular HGB Conc 32.3 g/dl (32-36); Mean Corpuscular Hemoglobin 29.9 pg (26-34); Mean Corpuscular Volume 92.6 fl (80-100); Mean Platelet Volume 10.2 fl (7.4-10.4); Monocytes Absolute Auto 0.4 K/mm3 (0.1-0.6); Monocytes Percent Auto 6.1 % (2.6-8.5); Neutrophils Absolute Auto 2.7 K/mm3 (1.3-6.7); Neutrophils Percent Auto 46.5 % (45.5-73.1); Platelet Count Result 342 k/mm3 (150-375); Red Blood Count 4.32 M/mm3 (4.2-5.4); Red Cell Distribution Width 12.7 % (11.5-14.5); White Blood Count 5.8 K/mm3 (4.5-10.0)
[2024-01-31 13:48] LABS: Alanine Aminotransferase 14 U/L (6-35); Albumin Level 4.6 g/dL (3.5-5.1); Alkaline Phosphatase 62 U/L (38-126); Anion Gap 8 mmol/L (4-12); Aspartate Amino Transferase 20 U/L (14-36); Bilirubin,Total 0.5 mg/dL (0.2-1.3); Blood Urea Nitrogen 14 mg/dL (7-17); Calcium 9.5 mg/dL (8.4-10.2); Carbon Dioxide 24 mmol/L (22-30); Chloride 107 mmol/L (98-107); Cholesterol 221 mg/dL (0-200); Estimated Glomerular Filt Rate 60; Glucose 98 mg/dL (65-110); HDL Direct 72 mg/dL; Iron 139 ug/dL (37-170); Potassium 4.5 mmol/L (3.4-5.0); Sodium 139 mmol/L (137-145); Triglycerides 167 mg/dL (<150)
[2024-01-31 13:57] LABS: Percent Iron Saturation 45 % (20-50)
[2024-01-31 13:59] LABS: LDL Cholesterol Direct 117 mg/dL
[2024-01-31 14:56] LABS: Folic Acid > 20.0 ng/mL (2.76->20)
[2024-01-31 18:26] LABS: Vitamin D 25 Hydroxy 53.9 ng/mL
[2024-02-03 12:13] LABS: Vitamin B1 45 nmol/L (8-30)
== END 2024-01-31 13:05 | disposition home or self-care (01) ==
LOC: ANHLAB 13:05
PROVIDERS: PCP Nurse Practitioner Family; Visit Provider Nurse Practitioner Family
DX: Z00.00 Encounter for general adult medical examination without abnormal findings (principal); E66.3 Overweight; E55.9 Vitamin D deficiency, unspecified; G43.001 Migraine without aura, not intractable, with status migrainosus; R53.83 Other fatigue; E78.5 Hyperlipidemia, unspecified; Z13.21 Encounter for screening for nutritional disorder
CPT/HCPCS: 36415; 80053; 80061; 82306; 82607; 82746; 83540; 83550; 84425; 84443; 85025

== ENCOUNTER 2024-03-07 15:15 | Outpatient (CLI) | payer OTHER, SELFPAY ==
--- NOTE | ~2024-03-07 | MM_ITS ---
EXAMINATION: MM screening norman BI w jorge HISTORY: Screening TECHNIQUE: Craniocaudal and mediolateral oblique 3-D tomosynthesis images were obtained and synthetic 2-D images were generated. CAD analysis was submitted and interpreted. COMPARISON: 02/20/2019 BREAST PARENCHYMAL COMPOSITION: There are scattered areas of fibroglandular density. FINDINGS: There is no evidence of suspicious mass, calcification, or architectural distortion to sugg est malignancy in either breast. There has been no suspicious interval change. IMPRESSION: 1. No mammographic evidence of malignancy. 2. Recommend routine screening mammography in one year. BI-RADS Category 1: Negative Reviewed, dictated and finalized at location B.
== END 2024-03-07 15:16 | disposition home or self-care (01) ==
PROVIDERS: PCP Nurse Practitioner Family; Visit Provider Nurse Practitioner Family
DX: Z12.31 Encounter for screening mammogram for malignant neoplasm of breast (principal)
CPT/HCPCS: 77063; 77067

== ENCOUNTER 2024-10-31 15:35 | Emergency (ER) | payer OTHER, SELFPAY ==
[2024-10-31 15:40] VITALS: BP 125/71; PULSE 72; RESP 19; TEMP 37.3; O2SAT 100
--- NOTE | 2024-10-31 16:00 | ED.EYEPROB ---
HPI - Eye Problem General Chief complaint: Eye Problems Stated complaint: one pupil dilated, one pupil pinpoint Time Seen by Provider: 10/31/24 16:05 Source: patient and RN notes reviewed Mode of arrival: ambulatory Limitations: no limitations History of Present Illness HPI Narrative: 44-year-old female presents concern for dilated right pupil. She reports she noticed some blurry vision lab half an hour ago and realized her right pupil was dilated. She denies any pain. Denies headache. Denies weakness in any extremity. She has a history of migraines and reports she usually gets bilateral dilated pupils with a migraine. She is currently having some shoulder tightness and neck tightness which is typical for the start of a migraine. She called her primary care doctor who told her to be seen in urgent care. Related Data Allergies Allergy/AdvReac Type Severity Reaction Status Date / Time ibuprofen AdvReac Mild Swelling Verified 10/31/24 15:43 aspirin AdvReac Unknown Swelling Verified 10/31/24 15:43 NSAIDS (Non-Steroidal AdvReac Unknown Swelling Verified 10/31/24 15:43 Anti-Inflamma Review of Systems Review of Systems: GENERAL: Well-appearing, well-nourished, and in no acute distress. HEAD: Normocephalic, atraumatic. EYES: Conjunctivae and sclera clear, and EOMI. No nystagmus. Right pupil 6 mm and reactive to light, left pupil 3-4 mm and reactive to light ENT: Mucous membranes moist. TM pearly cedillo with sharp light reflex bilaterally; no tragal tenderness. O NECK: Supple. No lymphadenopathy. CHEST: No respiratory distress. Speaks in full sentences. HEART: Regular rate and rhythm. EXTREMITIES: Normal range of motion. No edema. Normal strength and sensation. SKIN: Warm, dry, no visible rash. NEURO: Alert and oriented x3. No focal deficits. Cranial nerves II through XII grossly intact PSYCH: Normal mood and affect All systems reviewed & are unremarkable except as noted in HPI and below PMFSH Past Medical History Medical History COVID-19 LLQ pain Elevated lipids Migraines Bipolar 1 disorder Chronic low back pain Solitary kidney Surgical History Surgical History History of gynecological procedure (08/20/07) DX laparoscopy RLQ pain dyspareunia History of gynecological procedure (08/19/09) Rollerball endometrial ablation ; menometrorrhagia, uterine septum Previous section primary c/s Breech 08/31/2004 rpt c/s 09/21/2005 Hx of tonsillectomy (~1984) H/O: hysterectomy (02/24/10) Laparoscopic Supra cervical hysterectomy; Menometrorrhagia, failed Ablation Bicornuate uterus H/O spinal fusion (02/03/15) spinal fusion L5 S1 Family History Family History Father Depression Family history of elevated blood lipids Heart disease Hypertension Mother Patient's mother is in good health Sibling Patient's sister is in good health Grandparent Schizophrenia Glaucoma Breast cancer paternal grandmother Hypertension maternal grandmother Social History Social History Smoking status: Never smoker Second hand tobacco smoke exposure: No Alcohol intake: current Drinks per week: 3 Alcohol use details: Social Substance use: never Substance use type: does not use Do You Feel Safe in your Home?: Yes Lack of Transportation: No Lack of Food: Never True Current Housing: I Have Housing Concerned About Future Housing: No Difficulty Paying Gas/Electric Bills: No Difficulty Paying for Meds: No Currently Unemployed: No Education: High School Diploma/GED Difficulty w/ Childcare or Family Care: No Living arrangements: with family Occupation/Education: occupation 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 There is no relevant family history pertinent to the presenting complaint Exam Narrative: GENERAL: Well-appearing, well-nourished, and in no acute distress. HEAD: Normocephalic, atraumatic. EYES: PERRLA, sclera clear, and EOMI. No nystagmus. Bilateral conjunctivae injected. Upper and lower eyelid unremarkable, no periorbital edema noted ENT: Nares clear, turbinates pink, no rhinorrhea or epistaxis. Mucous membranes moist. TM pearly cedillo with sharp light reflex bilaterally; no tragal tenderness. NECK: Supple. CHEST: No respiratory distress. Speaks in full sentences. HEART: Regular rate and rhythm. SKIN: Warm, dry, no visible rash. NEURO: Alert and oriented x3. PSYCH: Normal mood and affect Course Course Emergency Course: Patient is aware of diagnosis, understands and agrees to treatment plan. Anticipatory guidance given. Patient agrees to follow-up as directed and is aware of reasons to seek care at the emergency department. Portions of this record may have been created with voice recognition software Level of Care: Express Care Visit Vital Signs Vital signs: Vital Signs Temperature 99.1 F 10/31/24 15:40 Pulse Rate 72 10/31/24 15:40 Respiratory Rate 19 10/31/24 15:40 Blood Pressure 125/71 10/31/24 15:40 Pulse Oximetry 100 10/31/24 15:40 Oxygen Delivery Room Air 10/31/24 15:40 Temperature 99.1 F 10/31/24 15:40 Pulse Rate 72 10/31/24 15:40 Respiratory Rate 19 10/31/24 15:40 Blood Pressure 125/71 10/31/24 15:40 Pulse Oximetry 100 10/31/24 15:40 Oxygen Delivery Room Air 10/31/24 15:40 Reviewed. 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 Critical Care Time Critical Care Time Critical Care Time: No Discharge Plan Discharge Clinical Impression: Dilated pupil Patient Disposition: Home, Self-Care Condition: Stable Instructions: General Patient Instructions Additional Instructions: 1) Please follow-up with your eye doctor or primary care doctor in the next 1-2 days. 2) If you have any worsening of symptoms or any other urgent concerns please go to the ER. 3) Please read and follow information included in discharge instructions. Patient Language: Libyan Prescriptions: No Action methocarbamol 750 mg tablet 750 mg PO TID PRN (Reason: Spasms) Qty: 30 1RF tramadol 50 mg tablet 100 mg PO Q8H PRN (Reason: pain) Qty: 180 0RF trazodone 100 mg tablet 100 mg PO QHS PRN (Reason: insomnia) Qty: 90 1RF Follow-up/Referrals: Juana Singletary APRN [Primary Care Provider] - Time of Disposition: 16:15
== END 2024-10-31 16:20 | disposition home or self-care (01) ==
PROVIDERS: Emergency Provider Nurse Practitioner; PCP Nurse Practitioner Family
DX: H57.04 Mydriasis (principal); Q60.0 Renal agenesis, unilateral; Z86.16 Personal history of COVID-19
CPT/HCPCS: 99212; G0463

== ENCOUNTER 2025-03-04 11:03 | Outpatient (CLI) | payer OTHER, SELFPAY ==
[2025-03-04 11:31] LABS: Hematocrit 40.6 % (37.0-47.0); Hemoglobin 13.4 g/dL (12.0-15.0); Immature Granulocyte Percent A 0.4 % (0-0.5); Lymphocytes Absolute Auto 2.33 K/mm3 (0.9-3.2); Mean Corpuscular HGB Conc 33.0 g/dl (32-36); Mean Corpuscular Hemoglobin 29.3 pg (26-34); Mean Corpuscular Volume 88.6 fl (80-100); Nucleated Red Blood Cells Absolute Auto 0.000 K/mm3 (0.0-0.012); Nucleated Red Blood Cells Perc 0.0 % (0.0-0.2); Platelet Count Result 319 k/mm3 (150-375); Red Blood Count 4.58 M/mm3 (4.2-5.4); White Blood Count 7.4 K/mm3 (4.5-10.0)
--- OUTSIDE RECORDS SUMMARY | 2025-03-04 11:32 | XMS_ITS | Clinical Summary ---
Author Organization [facility] Address [address] [place] [address] Care Team Providers Care Event Organizer Name Role Phone Nathaniel Whitney Primary Care Provider [phone] Allergies Active Allergy Reactions Criticality Noted Date Comments Aspirin Unknown 11/19/2020 Codeine Palpitations Low 11/19/2020 Naproxen Unknown 11/19/2020 Nsaids (Non-Steroidal Anti-I nflammatory Drug) Swelling Medium 04/29/2020 Medications traMADoL (ULTRAM) 50 mg tablet tramadol 50 mg tablet Active temazepam (RESTORIL) 30 mg capsule temazepam 30 mg capsule 08/19/19 21 Active methocarbamoL (ROBAXIN) 750 mg tablet methocarbamol 750 mg tablet TAKE 1 TABLET BY MOUTH THREE TIMES DAILY NEEDED FOR SPASMS 02/10/20 16 Active lamoTRIgine (LaMICtal) 200 mg tablet,disintegrat ing disintegrating tablet lamotrigine 200 mg disintegrating tablet Active buPROPion XL (WELLBUTRIN XL) 150 mg 24 hr tablet bupropion HCl XL 150 mg 24 hr tablet, extended release TAKE 1 TABLET BY MOUTH ONCE DAILY IN THE MORNING 08/11/19 21 Active Active Problems Problem Noted Date Diagnosed Date Spinal stenosis of lumbar region 11/19/2020 Surgical History Surgery Date Site/Laterality Comments SECTION 08/31/04;09/21/05 SECTION TONSILLECTOMY 08/06/1984 - 08/05/1985 DILATION AND CURETTAGE OF UTERUS 08/06/2009 - 08/05/2010 SPINAL FUSION 02/19/2015 SPINAL FUSION 02/23/2015 anterior lumbar infusion SPINAL FUSION posterior fusion L5-S1 Medical History Medical History Date Comments Bipolar 1 disorder (HCC) Depression Chronic kidney disease Migraines Family History Medical History Relation Name Comments Hypertension Father Relation Name Status Comments Father Social History Tobacco Use Types Packs/Day Years Used Date Smoking Tobacco: Never Smokeless Tobacco: Never Personal Safety Answer Date Recorded Getting School Help Needed Not on file 10/20 Comments Unknown Sex and Gender Information Value Date Recorded Sex Assigned at Not on file 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 Gender Identity Not on file Sexual Orientation Not on file Obstetrics History Last Filed Vital Signs Vital Sign Reading Time Taken Comments Blood Pressure 97/58 02/23/2015 7:42 AM CDT Pulse 71 02/23/2015 7:42 AM CDT Temperature 37.1 C (98.7 F) 02/23/2015 7:42 AM CDT Respiratory Rate - - Oxygen Saturation 96% 02/23/2015 7:42 AM CDT Inhaled Oxygen Concentration - - Weight 66.2 kg (146 lb) 11/19/2020 12:14 PM CDT Height 165.1 cm (5' 5) 11/19/2020 12:14 PM CDT Body Mass Index 24.3 11/19/2020 12:14 PM CDT Plan of Treatment Not on file Insurance Care Teams Event Organizer Relationship Specialty Start Date End Date Nathaniel Whitney DO PCP - General 01/03/21
--- OUTSIDE RECORDS SUMMARY | 2025-03-04 11:32 | XMS_ITS | Referral Summary ---
Author Organization [facility] Address [address] [place] [address] Care Team Providers Care Hand Driller Name Role Phone Nathaniel Whitney Primary Care Provider [phone] Allergies Active Allergy Reactions Criticality Noted Date [...] Date Spinal stenosis of lumbar region 11/19/2020 Social History Tobacco Use Types Packs/Day Years Used Date Smoking Tobacco: Never Smokeless Tobacco: Never Personal Safety Answer Date Recorded Getting School Help Needed Not on file 10/20 Comments Unknown Sex and Gender Information Value Date Recorded Sex Assigned at Not on file 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
--- OUTSIDE RECORDS SUMMARY | 2025-03-04 11:32 | XMS_ITS | Patient Health Record ---
Author Organization [facility] Address [address] [place] [address] Support Name Relationship Address Phone Caitlyn Medellin Guarantor Unknown Reason For Referral No Information Medications Medication SIG (Take, Route, Frequency, Duration) Notes Start Date End Date Status lamoTRIgine 25 MG Oral two times per day; Duration: 0 take 1 (one) Tablet by Oral route two times per day 12/23/2018 Active Ultram 50 MG Oral every 6 hours; Duration: 0 take 1 or 2 (one or two) Tablet by Oral route every 6 hours 04/18/2019 Active QUEtiapine Fumarate 100 MG Oral daily; Duration: 0 take 1 (one) Tablet by Oral route daily 12/23/2018 Active Topamax 25 MG Oral two times per day; Duration: 0 take 1 (one) Tablet by Oral route two times per day 12/23/2018 Active Problems Problem Type SNOMED Code ICD Code Onset Dates Problem Status W/U Status Risk Notes Problem Solitary sacroiliitis (813861549) Sacroiliitis, not elsewhere classified (M46.1) 9 Active confirmed Problem Lumbar spondylosis with myelopathy (82886809) Other spondylosis with myelopathy, lumbar region (M47.16) 9 Active confirmed Plan Of Treatment No Information Medical (General) History Surgical History Surgery Date(Month/Year) Hysterectomy History of hysterectomy Tonsillectomy History of tonsillectomy section History of sec tion x2 History of lumbar laminectomy x2
--- OUTSIDE RECORDS SUMMARY | 2025-03-04 11:32 | XMS_ITS | Clinical Summary ---
Author Organization [facility] Address [facility] [place] [address] Care Team Providers Care Healthcare Technician Name Role Phone Nathaniel Whitney DO Primary Care Provider [phone] Allergies Active Allergy Reactions Criticality Noted Date Comments Nsaids Swelling 04/29/2020 Medications traMADol 50 MG tablet tramadol 50 mg tablet TAKE 2 TABLETS BY MOUTH EVERY 8 HOURS NEEDED FOR PAIN Active topiramate 25 MG tablet topiramate 25 mg tablet Active temazepam 30 MG capsule 08/19/19 21 Active SUMAtriptan 100 MG tablet 09/02/19 21 Active methocarbamol 750 MG Tab TAKE 1 TABLET BY MOUTH THREE TIMES DAILY NEEDED FOR SPASMS 05/27/20 20 Active lamoTRIgine 200 MG TABLET DISPERSIBLE lamotrigine 200 mg disintegrating tablet Active buPROPion XL 150 MG 24 hr tablet Take 150 mg by mouth every morning. FOR 14 DAYS 08/11/19 21 Active HYDROcodone-ngozi taminophen (NORCO) 5-325 MG tabletIndicatio ns:Acute Pain < 7 Day Supply Take 1 tablet by mouth every 6 (six) hours as needed. Indications: Acute Pain < 7 Day Supply 5 tablet 09/04/19 21 Active methylPREDNISol one, YOUNG, 4 MG tablet Take as directed on package. 1 each 07/04/20 21 Active acetaminophen (TYLENOL) 500 MG tablet Take 2 tablets (1,000 mg total) by mouth every 6 (six) hours as needed. 40 tablet 07/04/20 21 Active Active Problems No known active problems Family History Medical History Relation Comments Hypertension Father Thyroid Disease Mother Relation Status Comments Father Mother Social History Tobacco Use Types Packs/Day Years Used Date Smoking Tobacco: Never Smokeless Tobacco: Never Alcohol Use Standard Drinks/Week Comments Not Currently 0 (1 standard drink = 0.6 oz pur e alcohol) minimal Comments No Sex and Gender Information Value Date Recorded Sex Assigned at Not on file Legal Sex Female 7:21 PM CDT Gender Identity Not on file Sexual Orientation Not on file Last Filed Vital Signs Vital Sign Reading Time Taken Comments Blood Pressure 135/60 07/04/2021 6:43 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 Pulse 66 07/04/2021 6:43 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 Temperature 36.6 C (97.9 F) 07/04/2021 6:43 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 Respiratory Rate 18 07/04/2021 6:43 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 Oxygen Saturation 100% 07/04/2021 6:43 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 Inhaled Oxygen Concentration - - Weight 67.1 kg (148 lb) 07/04/2021 6:43 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 Height 165.1 cm (5' 5) 07/04/2021 6:43 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 Body Mass Index 24.63 07/04/2021 6:43 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 Plan of Treatment Health Maintenance Due Date Last Done Comments Colorectal Cancer Screening Colonoscopy (10 Years) 1979 Annual Physical 1982 Hepatitis C 1997 DTaP, Tdap and Td Vaccines ( 1 - Tdap) 1998 Hepatitis B Vaccines (1 of 3 - 19+ 3-dose series) 1998 HPV Vaccines (1 - 3-dose SCD M series) 2006 Mammogram Screening 2019 COVID-19 Vaccine (3 - 2023-2 5 season) 2024 05/09/2021, 04/13/2021 Meningococcal B Vaccine Aged Out No l onger eligible based on patient's age to complete this topic Meningococcal Vaccine Aged Out No matthieu sonia eligible based on patient's age to complete this topic Pneumococcal Vaccine: Pediatrics (0 to 5 Years) and At-Risk Patients (6 to 49 Years) Aged Out No longer eligible b ased on patient's age to complete this topic RSV Immunizations Under 20 Months Aged Out No longer eligible b ased on patient's age to complete this topic Insurance Care Teams Healthcare Technician Relationship Specialty Start Date End Date Nathaniel Whitney DO [address] [place] [id number] PCP - General INTERNAL MEDICINE 07/04/18
--- OUTSIDE RECORDS SUMMARY | 2025-03-04 11:32 | XMS_ITS | Patient Health Record ---
Author Organization [facility] Address [address] [place] [address] Care Team Providers Care Back End Developer Name Role Phone Lemuel Cunningham Unavailable [phone] Reason For Referral No Information Medications Medication SIG (Take, Route, Frequency, Duration) Notes Start Date End Date Status Narcan 4 MG/0.1ML Nasal Ac tive traMADol HCl 50 MG Oral A ctive SUMAtriptan Succinate 100 MG Oral Active HYDROcodone-Acetaminophen 5-325 MG Oral Active Fluconazole 150 MG Oral A ctive buPROPion HCl ER (XL) 300 MG Oral Active Topiramate 25 MG Oral Act michelle Temazepam 30 MG Oral Acti ve lamoTRIgine 200 MG Oral A ctive Methocarbamol 750 MG Oral Active Eszopiclone 3 MG Oral Act michelle Flurazepam HCl 30 MG Oral Active Acetaminophen-Codeine #3 300-30 MG Oral Active buPROPion HCl ER (XL) 150 MG Oral Active Plan Of Treatment No Information Insurance Providers Payer Name Payer Address Payer Phone Subscriber Number Group Number Insured Name Patient Relationship to Insured Coverage Start Date Coverage End Date [employer] [place] [facility] On Or After [address] [place] [address] [id number] ANDI BULLARD Self - patient is the insured
[2025-03-04 11:51] LABS: Iron 40 ug/dL (37-170)
[2025-03-04 11:53] LABS: Alanine Aminotransferase 16 U/L (6-35); Albumin Level 4.3 g/dL (3.5-5.1); Alkaline Phosphatase 59 U/L (38-126); Anion Gap 6 mmol/L (4-12); Aspartate Amino Transferase 22 U/L (14-36); Bilirubin,Total 0.4 mg/dL (0.2-1.3); Blood Urea Nitrogen 11 mg/dL (7-17); Calcium 9.5 mg/dL (8.4-10.2); Carbon Dioxide 23 mmol/L (22-30); Chloride 104 mmol/L (98-107); Cholesterol 207 mg/dL (0-200); Estimated Glomerular Filt Rate > 60; Glucose 92 mg/dL (65-110); HDL Direct 52 mg/dL; Potassium 4.1 mmol/L (3.4-5.0); Sodium 133 mmol/L (137-145); Total Protein 7.4 g/dL (6.3-8.2); Triglycerides 117 mg/dL (<150)
[2025-03-04 12:01] LABS: Percent Iron Saturation 12 % (20-50)
[2025-03-04 12:34] LABS: Ferritin 121.00 ng/mL (6.24-137)
[2025-03-04 13:04] LABS: Vitamin B12 320.0 pg/mL (239-931)
[2025-03-07 12:08] LABS: Vit. B1, Whole Blood 92.5 nmol/L (66.5-200.0)
[2025-03-07 23:07] LABS: Vitamin B2, Whole Blood 207 ug/L (137-370)
== END 2025-03-04 11:04 | disposition home or self-care (01) ==
LOC: ANHLAB 11:05
PROVIDERS: PCP Nurse Practitioner Family; Visit Provider Nurse Practitioner Family
DX: Z13.6 Encounter for screening for cardiovascular disorders (principal); Z13.21 Encounter for screening for nutritional disorder; G89.29 Other chronic pain; M25.562 Pain in left knee; G43.001 Migraine without aura, not intractable, with status migrainosus; G47.00 Insomnia, unspecified; R53.83 Other fatigue; M54.50 Low back pain, unspecified
CPT/HCPCS: 36415; 80053; 80061; 82306; 82607; 82728; 82746; 83540; 83550; 84207; 84252; 84425; 85025

== ENCOUNTER 2025-06-30 11:41 | Outpatient (CLI) | payer OTHER, SELFPAY ==
--- NOTE | ~2025-06-30 | XR_ITS ---
XR cervical spine 4-5V Indication: CHRONIC LT SIDED NECK PAIN GOES DOWN LT ARM; NUMB TINGLING Comparison: None Findings: The vertebral heights intact, no fracture or subluxation, no subluxation flexion and extension The disc heights are intact. Soft tissues unremarkable Impression: No acute abnormality. Reviewed, dictated and finalized at location P. MACHINE OPERATOR Impression: No acute abnormality.
--- OUTSIDE RECORDS SUMMARY | 2025-06-30 13:27 | XMS_ITS | Clinical Summary ---
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
--- OUTSIDE RECORDS SUMMARY | 2025-06-30 13:27 | XMS_ITS | Patient Health Record ---
Author Organization [facility] Address [address] [place] [address] Support Name Relationship Address Phone Caitlyn Medellin [...] W/U Status Risk Notes Problem Solitary sacroiliitis (543946777) Sacroiliitis, not elsewhere classified (M46.1) 9 Active confirmed Problem Lumbar spondylosis with myelopathy (57672416) Other spondylosis with myelopathy, lumbar region (M47.16) 9 Active confirmed Plan Of Treatment No Information Medical (General) History Surgical History Surgery Date(Month/Year) Hysterectomy History of hysterectomy Tonsillectomy History of tonsillectomy section History of sec tion x2 History of lumbar laminectomy x2
== END 2025-06-30 11:42 | disposition home or self-care (01) ==
PROVIDERS: PCP Nurse Practitioner Family; Visit Provider Nurse Practitioner Family
DX: M54.2 Cervicalgia (principal)
CPT/HCPCS: 72050